=== PATIENT | male | born 1940 | race Caucasian/White ===

== ENCOUNTER 2018-09-05 16:43 | Inpatient (IN) | payer MEDICARE, OTHER ==
[~2018-09-05] VITALS: Ht 177.8 cm; Wt 84.0 kg
[~2018-09-05 16:43] MED LIST: ALBU8.5H8 INH; ALPR0.254 PO; ASPI-650 PO; ASPI81TA45 PO; ATOR-2 PO; ATOR40TA78 PO; BETA15CR4 TP; CARV12.52 PO; CEFD300C37 PO; CLOP75TA PO; DOXY100T PO; FENO134C PO; FINA5TAB4 PO; FLUT1AER INH; FURO40TA6 PO; HYDR-3240 PO; INSU100V8 SQ; ISOS30TA8 PO; LISI-170 PO; LORA-446 PO; MONT10TA9 PO; NATE120T2 PO; PRED20TA PO; TAMS0.4C2 PO; TRAZ-137 PO
--- NOTE | 2018-09-05 17:43 | NUR ---
PT PRESENTING TO ER FOR RIGHT SIDED FACIAL DROOP/NUMBNESS, RIGHT SIDE NECK PAIN, AND RIGHT EYE IRRITATION AND DRAINAGE X1 WK. CONNECTED TO ALL MONITORING, HTN, HX OF SAME. OTHER NEURO INTACT. AWAITING MD ORDERS AND ASSESSMENT AT THIS TIME. CALL LIGHT WITHIN REACH
--- NOTE | 2018-09-05 18:10 | NUR ---
MD ORDERS RECEIVED. AWAITING TESTING AND RESULTS AT THIS TIME. CALL LIGHT WITHIN REACH
[2018-09-05 18:29] LABS: BASOPHILS # (AUTO) 0.03 x10^3/uL (0-0.1); BASOPHILS % (AUTO) 0 % (0-1); EOSINOPHILS # (AUTO) 0.73 x10^3/uL (0-0.4); EOSINOPHILS % (AUTO) 9 % (1-7); LYMPHOCYTES % (AUTO) 14 % (22-44); MD NO; MEAN CORPUSCULAR HEMOGLOBIN 32.7 pg (27.5-34.5); MEAN CORPUSCULAR HGB CONC 33.2 g/dL (33.2-36.2); MEAN CORPUSCULAR VOLUME 98.4 fL (81-97); MONOCYTES # (AUTO) 0.65 x10^3/uL (0.2-0.8); MONOCYTES % (AUTO) 8 % (2-9); NEUTROPHILS # (AUTO) 5.47 x10^3/uL (1.8-6.8); NEUTROPHILS % (AUTO) 69 % (42-75); PLATELET COUNT 137 x10^3/uL (130-400); RED BLOOD COUNT 4.37 x10^6/uL (4.38-5.82); RED CELL DISTRIBUTION WIDTH 14.9 % (9.4-14.8)
[2018-09-05 18:35] LABS: INTERNATIONAL NORMALIZED RATIO 0.97 (0.93-1.1); PROTHROMBIN TIME 10.2 Seconds (9.6-11.5)
[2018-09-05 18:36] LABS: ALBUMIN 3.6 g/dL (3.4-5.0); ANION GAP 8 mmol/L (5-15); CALCIUM 9.2 mg/dL (8.5-10.1); CHLORIDE 108 mmol/L (98-107); CREATININE 1.24 mg/dL (0.7-1.3)
--- NOTE | 2018-09-05 18:46 | NUR ---
IV PLACED FOR CT. AWAITING TESTING AND RESULTS AT [facility] TIME. CALL LIGTH WITHIN REACH.
--- NOTE | 2018-09-05 18:56 | NUR ---
TAKEN TO CT
[2018-09-05] MEDS ORDERED: OMNIPAQUE 350 MG/ML, 100ML BOTTLE ONE (19:23)
--- NOTE | 2018-09-05 19:44 | NUR ---
ALL RESULTS BACK AT THIS TIME, CHART UP FOR RECHECK
[2018-09-05] MEDS ORDERED: ASPIRIN 325 MG TABLET ONE (20:17)
[2018-09-05] MEDS ORDERED: HEPARIN 25,000 UNITS/500ML PMX 500 ML ONE (20:17)
[2018-09-05] MEDS ORDERED: ASPIRIN 325 MG TABLET PO ONE (20:30)
[2018-09-05] MEDS ORDERED: DO NOT GIVE XX PRN (20:30)
[2018-09-05] MEDS ORDERED: LABETALOL 5 MG/ML SYRINGE IVPush ONE (20:30)
[2018-09-05] MEDS ORDERED: LABETALOL 5MG/ML, 20ML IVPush ONE (20:30)
[2018-09-05] MEDS ORDERED: HEPARIN wt. based STROKE protocol MC PRN (20:30)
[2018-09-05] MEDS: HEPARIN 25,000 UNITS/500ML PMX 500 ML IV PRN (20:34)
[2018-09-05] MEDS ORDERED: FLUT1AER IH (20:43)
[2018-09-05] MEDS ORDERED: PANT40TA5 PO (20:43)
--- NOTE | 2018-09-05 20:46 | NUR ---
SECOND LINE PLACED. LABATOLOL GIVEN FOR HTN. AND HEPARIN DRIP STARTED WITH SECOND BINGO MANAGER NAOMI EL. PT EDUCATED ABOUT SAFETY WHILE ON THIS MEDICATION. VSS. AWAITING ROOM ON FLOOR.
--- NOTE | 2018-09-05 20:52 | NUR ---
REPORT GIVEN TO HEIDE RN, PT READY FOR TRANSPORT TO FLOOR. HOSPITALIST AT BEDSIDE FOR ADMIT ASSESSMENT
[2018-09-05 21:38] VITALS: BP 167/97
[2018-09-05] MEDS: ALBUTEROL SULFATE 2.5 MG/3 ML NPPB SCH (22:00)
[2018-09-05] MEDS: INSULIN GLARGINE 100 UNITS/ML, PEN SQ-INSULIN SCH (22:00)
[2018-09-05] MEDS: BUDESONIDE 0.5 MG/2 ML INHA HHN SCH (22:00)
[2018-09-05] MEDS: ATORVASTATIN 80 MG TABLET PO SCH (22:30)
[2018-09-05] MEDS: LACTATED RINGERS 1,000 ML IV SCH (22:31)
[2018-09-05] MEDS ORDERED: ALBUTEROL SULFATE 2.5 MG/3 ML NPPB PRN (23:00)
[2018-09-05] MEDS: CARVEDILOL 12.5 MG TABLET PO SCH (23:03)
[2018-09-05] MEDS: TRAZODONE 100MG TABLET PO SCH (23:03)
[2018-09-06] MEDS ORDERED: HYDROcodone/APAP 5/325 TABLET ONE (00:13)
[2018-09-06] MEDS ORDERED: LORazepam 1MG TABLET ONE (00:13)
[2018-09-06] MEDS ORDERED: LORazepam 1MG TABLET PO ONE (00:30)
[2018-09-06] MEDS ORDERED: HYDROcodone/APAP 5/325 TABLET PO ONE (00:30)
[2018-09-06 01:40] VITALS: BP 135/79
[2018-09-06 02:51] LABS: BASOPHILS # (AUTO) 0.05 x10^3/uL (0-0.1); BASOPHILS % (AUTO) 1 % (0-1); EOSINOPHILS # (AUTO) 0.77 x10^3/uL (0-0.4); EOSINOPHILS % (AUTO) 11 % (1-7); LYMPHOCYTES # (AUTO) 1.27 x10^3/uL (1-3.4); LYMPHOCYTES % (AUTO) 18 % (22-44); MD NO; MEAN CORPUSCULAR HEMOGLOBIN 31.9 pg (27.5-34.5); MEAN CORPUSCULAR HGB CONC 32.6 g/dL (33.2-36.2); MEAN CORPUSCULAR VOLUME 97.8 fL (81-97); MEAN PLATELET VOLUME 9.3 fL (7.4-10.4); MONOCYTES # (AUTO) 0.63 x10^3/uL (0.2-0.8); MONOCYTES % (AUTO) 9 % (2-9); NEUTROPHILS # (AUTO) 4.47 x10^3/uL (1.8-6.8); NEUTROPHILS % (AUTO) 62 % (42-75); PLATELET COUNT 137 x10^3/uL (130-400); RED BLOOD COUNT 4.18 x10^6/uL (4.38-5.82)
[2018-09-06 02:56] LABS: ANION GAP 7 mmol/L (5-15); CHLORIDE 107 mmol/L (98-107); CREATININE 1.17 mg/dL (0.7-1.3)
[2018-09-06] MEDS: HEPARIN 25,000 UNITS/500ML PMX 500 ML IV PRN (03:28)
[2018-09-06] MEDS: ALBUTEROL SULFATE 2.5 MG/3 ML NPPB SCH ×2 (03:58→06:32)
[2018-09-06] MEDS: HYDROcodone/APAP 5/325 TABLET PO SCH ×4 (06:07→20:16)
[2018-09-06] MEDS: BUDESONIDE 0.5 MG/2 ML INHA HHN SCH ×2 (06:31→22:00)
[2018-09-06 07:57] VITALS: BP 133/72
[2018-09-06] MEDS ORDERED: FLUTICASONE/VILANTEROL 100-25MCG/INH INH SCH (09:00)
[2018-09-06] MEDS: BETAMETHASONE DIPRO CRM 0.05%, 15GM TP SCH (09:00)
[2018-09-06] MEDS: TAMSULOSIN 0.4 MG CAP.ER.24H PO SCH ×2 (09:45→20:16)
[2018-09-06] MEDS: CLOPIDOGREL 75 MG TABLET PO SCH (09:45)
[2018-09-06] MEDS: PANTOPROZOLE 40MG TABLET PO SCH ×2 (09:45→17:06)
[2018-09-06] MEDS: CARVEDILOL 12.5 MG TABLET PO SCH ×2 (09:45→20:16)
[2018-09-06] MEDS: MONTELUKAST 10 MG TABLET PO SCH (09:45)
[2018-09-06] MEDS: ISOSORBIDE MONONITRATE ER 30 MG TABLET PO SCH (09:45)
[2018-09-06] MEDS: FINASTERIDE 5 MG TABLET PO SCH (09:45)
[2018-09-06] MEDS: LORazepam 1MG TABLET PO SCH ×2 (09:45→20:16)
[2018-09-06] MEDS: ASPIRIN 81 MG TABLET EC PO SCH (09:45)
[2018-09-06 13:19] VITALS: BP 130/68
--- NOTE | 2018-09-06 14:10 | NUR ---
CONTRACTING OFFICER Recommend Regular/ THINS -Straws ok -UP for all meal at 90 degrees -Check for pocketing Please stop PO if any s/sx of difficulty. [place] sheet posted Addendum: 09/06/18 at [address] Amended: Links added.
[2018-09-06 18:47] VITALS: BP 139/70
[2018-09-06] MEDS: TRAZODONE 100MG TABLET PO SCH (20:16)
[2018-09-06] MEDS: ATORVASTATIN 80 MG TABLET PO SCH (20:16)
[2018-09-06] MEDS: INSULIN GLARGINE 100 UNITS/ML, PEN SQ-INSULIN SCH (20:22)
[2018-09-07] MEDS: LACTATED RINGERS 1,000 ML IV SCH (00:23)
[2018-09-07 01:10] VITALS: BP 144/82
[2018-09-07] MEDS: HYDROcodone/APAP 5/325 TABLET PO SCH ×3 (05:28→16:27)
[2018-09-07 08:00] VITALS: BP 145/85
[2018-09-07] MEDS: BETAMETHASONE DIPRO CRM 0.05%, 15GM TP SCH (09:00)
[2018-09-07] MEDS: ASPIRIN 81 MG TABLET EC PO SCH (09:37)
[2018-09-07] MEDS: CARVEDILOL 12.5 MG TABLET PO SCH (09:37)
[2018-09-07] MEDS: ISOSORBIDE MONONITRATE ER 30 MG TABLET PO SCH (09:37)
[2018-09-07] MEDS: CLOPIDOGREL 75 MG TABLET PO SCH (09:37)
[2018-09-07] MEDS: LORazepam 1MG TABLET PO SCH (09:37)
[2018-09-07] MEDS: FINASTERIDE 5 MG TABLET PO SCH (09:37)
[2018-09-07] MEDS: MONTELUKAST 10 MG TABLET PO SCH (09:38)
[2018-09-07] MEDS: PANTOPROZOLE 40MG TABLET PO SCH ×2 (09:38→16:27)
[2018-09-07] MEDS: TAMSULOSIN 0.4 MG CAP.ER.24H PO SCH (09:40)
[2018-09-07] MEDS: BUDESONIDE 0.5 MG/2 ML INHA HHN SCH (10:00)
[2018-09-07 15:17] VITALS: BP 130/74
== END 2018-09-07 18:38 | disposition home or self-care (01) | DRG 74 ==
LOC: ED 19:56 → EDIP 20:22 → 4EST 21:10
PROVIDERS: ADMIT Internal Medicine; ATTEND Internal Medicine
DX: G51.0 Bell's palsy (principal); I65.23 Occlusion and stenosis of bilateral carotid arteries; E11.22 Type 2 diabetes mellitus with diabetic chronic kidney disease; E78.5 Hyperlipidemia, unspecified; I12.9 Hypertensive chronic kidney disease with stage 1 through stage 4 chronic kidney disease, or unspecified chronic kidney disease; I25.10 Atherosclerotic heart disease of native coronary artery without angina pectoris; J44.9 Chronic obstructive pulmonary disease, unspecified; N18.9 Chronic kidney disease, unspecified; Z79.02 Long term (current) use of antithrombotics/antiplatelets; Z79.4 Long term (current) use of insulin; Z79.82 Long term (current) use of aspirin; Z79.899 Other long term (current) drug therapy; Z87.891 Personal history of nicotine dependence; Z89.429 Acquired absence of other toe(s), unspecified side; Z95.1 Presence of aortocoronary bypass graft; E11.51 Type 2 diabetes mellitus with diabetic peripheral angiopathy without gangrene
CPT/HCPCS: 36415; 70450; 70496; 70498; 70551; 80048; 82040; 82607; 82962; 83735; 84443; 85025; 85520; 85610; 85730; 93005; 93306; 94640; 96374; 99291; G0378; J1644; J7613; J7626; Q9967; J1815; J7120